=== PATIENT | female | born 1945 | race Caucasian/White ===

== ENCOUNTER 2016-05-18 18:51 | Emergency (ER) | payer OTHER ==
--- NOTE | ~2016-05-18 | CR229 ---
[facility] A Service of [facility] & [facility] RADIOLOGY TEXT RESULTS PATIENT: KYLIE SHANNON LOCATION: SED : 46 UNIT #: [id number] AGE: [address]: Brodie Damian MD SEX: F ORDER DR: [id number] [place] [id number] E MR#: [id number] Acc #: [id number] NAME: KYLIE SHANNON : 1945 SEX: F STUDY DATE/TIME: 05/18/2016 18:40 UNIT: SED ROOM: STUDY DESCRIPTION: CR Shoulder Min 2 View Lt Attending Physician: Brodie Damian M.D. Ordering Physician: Derek Gallego M.D. Primary Care Physician: Fara Trevino M.D. MEDICAL IMAGING REPORT This report is preliminary unless electronic signature is present. EXAM Left shoulder 05/18/2016 HISTORY 70-year-old female with left shoulder pain status post fall today. COMPARISON Left shoulder 10/20/2015. FINDINGS 2 views of the left shoulder demonstrate no acute fracture or dislocation. Mild degenerative change of the acromioclavicular joint. Visualized left ribs are intact. IMPRESSION 1. No acute fracture or dislocation. 2. Mild acromioclavicular joint arthrosis. Dictated by... Sina Painter M.D. THIS IS AN ELECTRONICALLY VERIFIED REPORT Sina Painter M.D. at 05/19/2016 6:47 PM AUDRA/darrick TD: 05/19/2016 09:10 JOB #: [id number] MEDICAL IMAGING REPORT
--- NOTE | ~2016-05-18 | CT71 ---
[facility] A Service of [facility] RADIOLOGY TEXT RESULTS PATIENT: KYLIE SHANNON LOCATION: SED : 46 UNIT #: [id number] AGE: [address]: Brodie Damian MD SEX: F ORDER DR: [id number] [address] [address] [id number] E MR#: [id number] Acc #: [id number] NAME: KYLIE SHANNON : 1945 SEX: F STUDY DATE/TIME: 05/18/2016 18:19 UNIT: SED ROOM: STUDY DESCRIPTION: CT Head Wo Contrast Attending Physician: Brodie Damian M.D. Ordering Physician: Derek Gallego M.D. Primary Care Physician: Fara Trevino M.D. MEDICAL IMAGING REPORT This report is preliminary unless electronic signature is present. EXAM Noncontrast head CT. HISTORY 70-year-old female slid and fell in basement today. Right-sided facial bruising. Jaw pain. TECHNIQUE This CT exam was performed with one or more of the following radiation dose reduction techniques: Automatic exposure control, adjustment of mA and/or kV according to patient size, and iterative reconstruction. FINDINGS Axial noncontrast imaging of the brain demonstrates no mass, mass effect or midline shift. No hemorrhage or abnormal extraaxial fluid collections. Mild atrophy in keeping with age. Bony calvarium, skull base, mastoids unremarkable. There is minimal ethmoid and maxillary sinus mucosal disease. IMPRESSION 1. No acute intracranial abnormality identified. 2. Minimal ethmoid and maxillary sinus mucosal disease. 1. Dictated by... Cal Pearce M.D. THIS IS AN ELECTRONICALLY VERIFIED REPORT Cal Pearce M.D. at 05/19/2016 6:31 PM JIM/beni TD: 05/19/2016 09:04 [facility] A Service [facility] RADIOLOGY TEXT RESULTS PATIENT: KYLIE SHANNON LOCATION: SED : 46 UNIT #: [id number] AGE: [address]: Brodie Damian MD SEX: F ORDER DR: LANDRY #: [id number] MEDICAL IMAGING REPORT
--- NOTE | ~2016-05-18 | CT101 ---
[facility] A Service [facility] RADIOLOGY TEXT RESULTS PATIENT: KYLIE SHANNON LOCATION: SED : 46 UNIT #: [id number] AGE: [address]: Brodie Damian MD SEX: F ORDER DR: [id number] [address] [address] [id number] E MR#: [id number] Acc #: [id number] NAME: KYLIE SHANNON : 1945 SEX: F STUDY DATE/TIME: 05/18/2016 18:19 UNIT: SED ROOM: STUDY DESCRIPTION: CT Maxillofacial Area Wo Cont Attending Physician: Brodie Damian M.D. Ordering Physician: Derek Gallego M.D. Primary Care Physician: Fara Trevino M.D. MEDICAL IMAGING REPORT This report is preliminary unless electronic signature is present. EXAM CT maxillofacial bones. HISTORY Slid and fell in basement today. Right-sided facial bruising. Jaw pain. TECHNIQUE Thin-section axial images performed through the maxillofacial bones without contrast. Multiplanar reconstructed images reviewed at a workstation. This CT exam was performed with one or more of the following radiation dose reduction techniques: automatic exposure control, adjustment of mA and/or kV according to patient size, and iterative reconstruction. FINDINGS Examination demonstrates diffuse thickening of the bony calvaria, most likely represents hyperostosis frontalis interna, a normal anatomic variant. No acute fracture. Minimal ethmoid and maxillary sinus mucosal disease. Craniocervical junction unremarkable. Mandible dentition grossly intact. IMPRESSION No acute maxillofacial abnormality. Dictated by... Cal Pearce M.D. THIS IS AN ELECTRONICALLY VERIFIED REPORT [facility] A Service [facility] RADIOLOGY TEXT RESULTS PATIENT: KYLIE SHANNON LOCATION: SED : 46 UNIT #: [id number] AGE: [address]: Brodie Damian MD SEX: F ORDER DR: Cal Pearce M.D. at 05/19/2016 6:31 PM JIM/jim TD: 05/19/2016 09:03 JOB #: [id number] MEDICAL IMAGING REPORT
--- NOTE | ~2016-05-18 | CR169 ---
[facility]. [facility] A Service of [facility] RADIOLOGY TEXT RESULTS PATIENT: KYLIE SHANNON LOCATION: SED : 46 UNIT #: [id number] AGE: [address]: Brodie Damian MD SEX: F ORDER DR: [id number] [address] [address] [id number] E MR#: [id number] Acc #: [id number] NAME: KYLIE SHANNON : 1945 SEX: F STUDY DATE/TIME: 05/18/2016 18:40 UNIT: SED ROOM: STUDY DESCRIPTION: CR Knee 2 Views Lt Attending Physician: Brodie Damian M.D. Ordering Physician: Derek Gallego M.D. Primary Care Physician: Fara Trevino M.D. MEDICAL IMAGING REPORT This report is preliminary unless electronic signature is present. EXAM Left knee 2 views 05/18/2016 HISTORY Left knee pain status post fall into basement today. FINDINGS 2 views of the right knee demonstrate no fracture. Total knee prosthesis appears well seated. The bones are somewhat osteopenic. There is no joint effusion. IMPRESSION Total knee prosthesis. No evidence of fracture. Dictated by... Dez Lopez M.D. THIS IS AN ELECTRONICALLY VERIFIED REPORT eDz Lopez M.D. at 05/19/2016 10:55 AM DEE DEE/letha TD: 05/19/2016 09:01 JOB #: [id number] MEDICAL IMAGING REPORT
--- NOTE | ~2016-05-18 | CT52 ---
[facility] A Service of [facility] RADIOLOGY TEXT RESULTS PATIENT: KYLIE SHANNON LOCATION: SED : 47 UNIT #: [id number] AGE: [address]: Brodie Damian MD SEX: F ORDER DR: [id number] [address] [address] [id number] E MR#: [id number] Acc #: [id number] NAME: KYLIE SHANNON : 1945 SEX: F STUDY DATE/TIME: 05/18/2016 18:30 UNIT: SED ROOM: STUDY DESCRIPTION: CT Cervical Spine Wo Cont Attending Physician: Brodie Damian M.D. Ordering Physician: Derek Gallego M.D. Primary Care Physician: Fara Trevino M.D. MEDICAL IMAGING REPORT This report is preliminary unless electronic signature is present. EXAM CT cervical spine without contrast. HISTORY 70-year-old female slid and fell in basement today. Right-sided facial bruising. Neck pain. TECHNIQUE Thin section axial images performed through the cervical spine without contrast. Multiplanar reconstructed images were reviewed at a workstation. This CT exam was performed with one or more of the following radiation dose reduction techniques: automatic exposure control, adjustment of mA and/or kV according to patient size, and iterative reconstruction. FINDINGS Patient is fused C5-6. This apparently represents a congenital fusion as the patient does not give a history of previous neck surgery. There is multilevel degenerative disc changes, most pronounced C4-5 and C6-7. No acute fracture or malalignment. The odontoid and atlantoaxial joint unremarkable. The craniocervical and cervicothoracic junction unremarkable. Patient is status post left thyroidectomy. Lung apices unremarkable. Extensive foraminal stenosis noted bilaterally at C6-7 and also C4-5. IMPRESSION 1. No acute cervical spine abnormality identified. 2. 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 3. C4-5, C6-7 degenerative disc disease with spinal and foraminal stenosis as detailed above. [facility] A Service of [facility] RADIOLOGY TEXT RESULTS PATIENT: KYLIE SHANNON LOCATION: [facility] : 47 UNIT #: [id number] AGE: [address]: Brodie Damian MD SEX: F ORDER DR: Dictated by... Cal Pearce M.D. THIS IS AN ELECTRONICALLY VERIFIED REPORT Cal Pearce M.D. at 05/19/2016 6:31 PM JIM/jim TD: 05/19/2016 09:06 JOB #: [id number] MEDICAL IMAGING REPORT
[~2016-05-18 18:51] MED LIST: ACIPHEX20 MG PO; ADVIL200 M3 PO; AMBIEN CR PO; AMLODIPINE BESYL5 MG PO; ASPIRIN PO; ASPIRIN325 M1 PO; ASPIRIN81 M1 PO; B12; CARITA PO; CELEXA PO; CITALOPRAM HBR40 MG PO; COREG PO; CRESTOR10 MG PO; DIAZEPAM PO; DICLOFENAC; FISH OIL500 M2 PO; HYDROCODON-ACE1 EACH PO; IMDUR PO; IMDUR-ER30 M1 DOB; KLONOPIN PO; KLONOPIN1 MG PO; LASIX PO; LASIX20 MG PO; LEXAPRO PO; LORTAB 5/500 TA1 TA1 PO; LORTAB 7.5-5001 TAB; LORTAB 7.5-5001 TAB PO; METOPROLOL SUCC25 MG PO; METOPROLOL TAR25 MG PO; MULTI-DAY1 TAB; MULTIVITAMIN1 UDCAP PO; NAPROXEN PO; NASONEX17 GM; NEXIUM PO; NITROGLYGERIN0.4 MG SL; NITROGYLCERIN SUBLINGUAL; NITROLINGUAL12 G1; PEPCID40 MG PO; PHENERGAN PO; PHENERGAN25 MG; PHENERGAN25 MG PO; PLAVIX PO; PREVACID PO; PRILOSEC PO; PROTONIX PO; RESTORIL15 MG PO; ST. JOSEPH ASPI81 M3 PO; TEMAZEPAM PO; TRAMADOL HCL50 M2 PO; VICODIN 5/500 T1 TAB PO; VITAMIN B12-FO1 EACH INJ; ZEGERID40 MG/PKT PO; ZETIA PO; ZOCOR PO; ZOCOR10 MG PO; [UNRECOGNIZED DRUG - REMARK]
== END 2016-05-18 20:31 | disposition home or self-care (01) ==
LOC: SED 18:51
DX: S00.83XA Contusion of other part of head, initial encounter (principal); I50.9 Heart failure, unspecified; I10 Essential (primary) hypertension; F41.9 Anxiety disorder, unspecified; Z90.49 Acquired absence of other specified parts of digestive tract; Z90.710 Acquired absence of both cervix and uterus; Z79.82 Long term (current) use of aspirin; Z79.899 Other long term (current) drug therapy; Z91.040 Latex allergy status; Z88.8 Allergy status to other drugs, medicaments and biological substances; W01.0XXA Fall on same level from slipping, tripping and stumbling without subsequent striking against object, initial encounter; Y92.009 Unspecified place in unspecified non-institutional (private) residence as the place of occurrence of the external cause
CPT/HCPCS: 12013; 70450; 70486; 72125; 73030; 73560; 99284